=== PATIENT | female | born 1980 | race Caucasian/White ===

== ENCOUNTER 2020-05-23 08:32 | Emergency (ER) | payer OTHER ==
[2020-05-23] MEDS ORDERED: ONDANSETRON HCL/PF 4 MG/2 ML VIAL ONE (09:16)
[2020-05-23] MEDS ORDERED: MORPHINE SULFATE INJ 4 MG/ML DISP.SYRIN ONE (09:17)
[2020-05-23] MEDS ORDERED: MORPHINE SULFATE INJ 2 MG/ML DISP.SYRIN IV ONE (09:30)
[2020-05-23] MEDS ORDERED: ONDANSETRON HCL/PF 4 MG/2 ML VIAL IVP ONE (09:30)
[2020-05-23] MEDS ORDERED: LORAZEPAM INJ 2 MG/ML VIAL ONE ×2 (10:11→10:32)
[2020-05-23] MEDS ORDERED: LORAZEPAM INJ 2 MG/ML VIAL IV ONE (10:30)
[2020-05-23] MEDS ORDERED: IV NS 0.9% 1,000 ML IV ONE (10:30)
== END 2020-05-23 12:33 | disposition home or self-care (01) ==
DX: F19.10 Other psychoactive substance abuse, uncomplicated (principal); E87.1 Hypo-osmolality and hyponatremia; R11.2 Nausea with vomiting, unspecified; R51.9 Headache, unspecified; E03.9 Hypothyroidism, unspecified; Z98.890 Other specified postprocedural states
CPT/HCPCS: 36415; 70450; 80048; 80076; 85025; 96361; 96374; 96375; 99284; J2060; J2270; J2405; J7030